=== PATIENT | female | born 1950 | race Caucasian/White ===

== ENCOUNTER 2018-11-26 09:22 | Observation (INO) ==
[2018-11-26] MEDS ORDERED: NS 1,000 ML IV ONE (09:45)
[2018-11-26] MEDS ORDERED: ZOFRAN IV ONE (09:45)
[2018-11-26] MEDS ORDERED: MORPHINE IV ONE (09:45)
[2018-11-26] MEDS ORDERED: MAXIPIME 2 GM in NS 100 ML IV ONE (09:46)
[2018-11-26 10:23] LABS: BASO# 0.03 X1000 (0.0-0.2); BASO% 0.2 % (0.0-0.8); EOS% 0.7 % (0.0-10.0); HEMATOCRIT 41.6 % (37.0-47.0); HEMOGLOBIN 14.6 g/dL (12.0-16.0); IMM GRAN# 0.03 X1000 (0.0-0.04); IMM GRAN% 0.2 % (0.0-0.5); LYMPH% 11.3 % (20.5-51.1); MCH 29.7 PG (27-31); MCHC 35.1 g/dL (33-37); MCV 84.6 FL (81-99); MONO# 1.48 X1000 (0.11-0.59); MONO% 9.9 % (1.7-9.3); MPV 10.7 FL (7.4-10.4); NEUT# 11.65 X1000 (1.4-6.5); NEUT% 77.7 % (42.2-75.2); PLT 323 X1000 (130-400); RBC 4.92 XMIL (4.2-5.4); RDW 13.8 % (11.5-14.5); WBC 14.99 X1000 (4.8-10.8)
--- NOTE | 2018-11-26 10:29 | Diag Imaging Result Doc PS360 ---
CHEST-PORTABLE - 11/26/2018 INDICATION: upright, r/o free air COMPARISON: 12/13/2015 FINDINGS: The lungs are normally expanded and clear. Heart size and mediastinal contours are normal. No pneumothorax or pleural effusion. IMPRESSION: Negative exam. No abdominal free air. Electronically signed by Chris Jama 11/26/2018 10:26 AM
--- NOTE | 2018-11-26 10:34 | Diag Imaging Result Doc PS360 ---
EXAM: CT ABDOMEN/PELVIS W/O CONTRAST HISTORY: LLQ pain, hx of diverticulitis, contrast allergy TECHNIQUE: CT abdomen and pelvis without contrast COMPARISON: None. FINDINGS: There is a small hiatal hernia. The gallbladder apparently has been removed. No focal hepatic abnormality identified on this noncontrasted exam. Normal spleen, pancreas, and adrenal glands. No renal stones. No hydronephrosis. There is a 3.6 cm left renal cyst. Prominent atherosclerosis. No aortic aneurysm. There are prominent inflammatory changes at the junction of the descending and sigmoid colon. There are multiple diverticula in this area. There is thickening to the wall at the descending sigmoid junction. No adjacent free air. No abscess. No bowel obstruction. The uterus has been removed. The urinary bladder is distended and is normal. There has been surgery to the mid lumbar spine. Mild scoliosis with degenerative spine changes. IMPRESSION: Diverticulitis at the junction of the descending and sigmoid colon. This report was discussed with Dr. Darnell Gutierrez in the emergency room on 11/26/2018 at 10:30 AM and was readback. This exam was performed using automated exposure control, adjustment of mA or kV according to patient size, and/or use of iterative reconstruction technique. Electronically signed by Hong Wright 11/26/2018 10:32 AM
[2018-11-26 10:49] LABS: ESTIMATED GFR > 60
[2018-11-26 10:53] LABS: AGAP 16; ALKALINE PHOSPHATASE 112 U/L (32-104); BUN 14 mg/dL (8-22); CALCIUM 9.5 mg/dL (8.8-10.2); CHLORIDE 89 mmol/L (98-107); COSMO 261; CREATININE 0.9 mg/dL (0.5-0.9); GLUCOSE 133 mg/dL (70-104); GOT 28 U/L (10-30); GPT 25 U/L (10-36); LIPASE 33 U/L (13-60); POTASSIUM 4.3 mmol/L (3.5-5.1); SODIUM 129 mmol/L (136-145); TCO2 24 mmol/L (25-35); TOTAL BILIRUBIN 0.86 mg/dL (0.20-1.00)
--- NOTE | 2018-11-26 12:08 | PROVIDER DOCUMENTATION ---
This chart was entered by Suzanne Monsalve Scribe, acting as scribe for Darnell Gutierrez MD. HPI-Abdominal Pain/GI Problem - General Chief Complaint: Abdominal Pain Stated Complaint: LT SIDE PAIN Time Seen by Provider: 11/26/18 09:38 Source: patient Allergies/Adverse Reactions: Patient Allergies Allergy/AdvReac Type Severity Reaction Status Date / Time Penicillins Allergy Mild RASH Verified 12/13/15 19:57 Home Medications: Home Medication List Medication Instructions Recorded Confirmed Last Taken Type Lisinopril/Hydrochlorothiazide 1 each PO DAILY 10/13/14 12/13/15 12/13/15 09:00 History [Zestoretic 20-25 Tablet] - History of Present Illness-ABD Nature of Presenting Problems: Patient is a 67 year old female who presents with LLQ abdominal pain that started 1 week ago. States nausea, constipation and loss of appetite. Reports eating a pickle last week and symptoms started. States history of diverticulitis and was recently prescribed Cipro. Denies blood in stool. Abdominal Pain Onset Location: reports: LLQ Pain Radiation: reports: no radiation Quality of Pain: reports: sharp Severity in ED: reports: mild Onset/Duration: reports: 1 week ago Timing: reports: still present, intermittent, getting worse Activities at Onset: reports: light activity Modifying Factors: worse with: movement Associated Symptoms: reports: constipation, loss of appetite, nausea Rectal Bleeding: reports: none Rectal Pain: reports: none Emesis Description: reports: none Bruising or Bleeding Gums?: No Similar Symptoms Previously?: Yes Recently seen or treated by another doctor?: Yes Review of Systems - Adult - REVIEW OF SYSTEMS - ADULT Constitutional: reports: no symptoms reported. denies: chills, fever, fatique Eyes: reports: no symptoms reported Ears, Nose, Mouth & Throat: reports: no symptoms reported Cardiovascular: reports: no symptoms reported Respiratory: reports: no symptoms reported Gastrointestinal: reports: see HPI, abdominal pain (LLQ), constipation, nausea, poor appetite. denies: rectal bleeding, vomiting Genitourinary: reports: no symptoms reported Musculoskeletal: reports: no symptoms reported. denies: back pain, muscle aches, muscle weakness Integumentary: reports: no symptoms reported Neurological: reports: no symptoms reported Psychiatric: reports: no symptoms reported Endocrine: reports: no symptoms reported Hematologic/Lymphatic: reports: no symptoms reported Allergic/Immunologic: reports: no symptoms reported All Other Systems: Reviewed and Negative Past History - Adult - PAST MEDICAL HISTORY-ADULT Review of Records: reports: Old Records Reviewed, Nursing Assessment Review, Medications Reviewed, Social history reviewed & non-contributory. Major Childhood Illnesses: reports: denies history Cardiovascular: reports: HTN Respiratory: reports: denies history Gastrointestinal: reports: denies history Obstetrical/Gynecological: reports: denies history Genitourinary: reports: denies history Musculoskeletal: reports: denies history Neurological: reports: denies history Endocrine/Immune: reports: denies history Other Conditions: reports: other (tonisullar cancer surgery 2 months ago) - PRIOR SURGERIES/PROCEDURES Surgical/Procedure History: reports: cholecystectomy, hysterectomy, hernia repair - PRIOR HOSPITALIZATIONS Prior Hospitalizations: reports: for other non-related - IMMUNIZATION STATUS Childhood Immunizations: See Nurse Assessment Flu Vaccine: See Nurse Assessment - FAMILY HISTORY Family History: reviewed, not pertinent - SOCIAL HISTORY Smoking: denies Substance Use: denies Physical Exam-General - PHYSICAL EXAM-ADULT Initial Vital Signs Reviewed: Yes - CONSTITUTIONAL General Appearance: alert, no apparent distress. negative: lethargic, slow to respond - HEAD, EARS, NOSE, MOUTH & THROAT HENMT: normocephalic/atraumatic, moist mucous membranes. negative: angioedema, hearing deficit - RESPIRATORY Respiratory: chest non-tender, lungs clear, normal breath sounds. negative: crackles, rales, stridor - CARDIOVASCULAR Cardiovascular: normal peripheral pulses, regular rate, rhythm. negative: tachycardia, systolic murmur - GASTROINTESTINAL (ABDOMEN) Abdominal Exam: soft, abnormal bowel sounds (hypoactive), guarding, tenderness (LLQ). negative: distended, hernia - MUSCULOSKELETAL Extremity: non-tender, normal inspection. negative: deformity, erythema - SKIN Integumentary: normal color, normal turgor, warm/dry. negative: cyanosis, ecchymosis, erythema, jaundice - NEUROLOGIC Neurologic: grossly normal. negative: aphasia, facial droop - PSYCHIATRIC Psych/Mental Status: normal mood/affect, oriented x 3. negative: anxious Progress - PLAN OF CARE/RESULTS Progress/Plan/Lab Results: Vital Signs - 8 hr 11/26/18 09:34 Temperature 97.4 F L Pulse Rate 82 Respiratory Rate 17 Blood Pressure 109/70 O2 Sat by Pulse Oximetry 99 Orders Category Date Time Status Saline Loc NOW Care 11/26/18 09:44 Active CHEST-PORTABLE [RAD] Stat Exams 11/26/18 09:[address] ABDOMEN/PELVIS W/O CONTRAST [CT] Stat Exams 11/26/18 09:48 Ordered BLOOD CULTURE [BLDCUL] Stat Lab 11/26/18 09:44 Ordered CBC WITH ELECTRONIC DIFF [HEME] Stat Lab 11/26/18 09:45 Uncollected COMPREHENSIVE METABOLIC PANEL [CHEM] Stat Lab 11/26/18 09:45 Uncollected LACTATE, PLASMA [CHEM] Stat Lab 11/26/18 09:45 Uncollected LIPASE [CHEM] Stat Lab 11/26/18 09:45 Uncollected OCCULT BLOOD SCREENING [STOOL] Stat Lab 11/26/18 09:45 Uncollected URINALYSIS W/POSS RFLX CULT [URINALYSIS] Stat Lab 11/26/18 09:45 Uncollected 0.9% Sodium Chloride Inj [Ns] 1,000 ml Med 11/26/18 09:45 Active IV 999 mls/hr CefEPIME [Maxipime] 2 gm Med 11/26/18 09:46 Active 0.9% Sodium Chloride Inj [Ns] 100 ml IV NOW Morphine Med 11/26/18 09:45 Discontinued 4 mg IV NOW ONE Ondansetron [Zofran] Med 11/26/18 09:45 Discontinued 4 mg IV NOW ONE Result Diagrams: 11/26/18 10:05 11/26/18 10:05 - REASSESSMENT Reassessment #1 Time Reassessed: 12:00 (failed outpatient therapy, does not wish to be admitted to Dr. Ordoñez) Status: improving Reassessment Comment: Patient states she feels much better, but still has some LLQ tenderness - XRAY 1 XRAY Study: Chest Impression: See EMR Report ( Signed CHEST-PORTABLE - 11/26/2018 INDICATION: upright, r/o free air COMPARISON: 12/13/2015 FINDINGS: The lungs are normally expanded and clear. Heart size and mediastinal contours are normal. No pneumothorax or pleural effusion. IMPRESSION: Negative exam. No abdominal free air. Electronically signed by Chris Jama 11/26/2018 10:26 AM 11/26/18 1026 Interpreting Physician: Chris Jama MD Dictated Date/Time: 11/26/18 1026 cc: Darnell Gutierrez MD; Josue Ordoñez MD) - CT/MRI 1 CT Study: Abdomen, Pelvis Impression: See EMR Report ( EXAM: CT ABDOMEN/PELVIS W/O CONTRAST HISTORY: LLQ pain, hx of diverticulitis, contrast allergy TECHNIQUE: CT abdomen and pelvis without contrast COMPARISON: None. FINDINGS: There is a small hiatal hernia. The gallbladder apparently has been removed. No focal hepatic abnormality identified on this noncontrasted exam. Normal spleen, pancreas, and adrenal glands. No renal stones. No hydronephrosis. There is a 3.6 cm left renal cyst. Prominent atherosclerosis. No aortic aneurysm. There are prominent inflammatory changes at the junction of the descending and sigmoid colon. There are multiple diverticula in this area. There is thickening to the wall at the descending sigmoid junction. No adjacent free air. No abscess. No bowel obstruction. The uterus has been removed. The urinary bladder is distended and is normal. There has been surgery to the mid lumbar spine. Mild scoliosis with degenerative spine changes. IMPRESSION: Diverticulitis at the junction of the descending and sigmoid colon. This report was discussed with Dr. Darnell Gutierrez in the emergency room on 11/26/2018 at 10:30 AM and was readback. This exam was performed using automated exposure control, adjustment of mA or kV according to patient size, and/or use of iterative reconstruction technique. Electronically signed by Hong Wright 11/26/2018 10:32 AM 11/26/18 1032 Interpreting Albert driver: Hong Wright MD Dictated Date/Time: 11/26/18 1027 cc: Darnell Gutierrez MD; Josue Ordoñez MD) - CONSULTS/PCP/HOSPITALIST Notification #1 *Consult/PCP/Hospitalist*: Youself Time Discussed: 12:02 Consult Disposition: other (he will follow-up in hospital) #2 Consult: Hospitalist paged at 1200 Time Discussed: 12:08 Reason/Comments: Shilpi will discuss with Dr. costa Consult Disposition: Will see in ED Departure - Departure Date of Disposition Decision: 11/26/18 Time of Disposition Decision: 12:02 DIAGNOSIS: Diverticulitis of sigmoid colon, Failure of outpatient treatment Disposition: ADMITTED INPATIENT 09 Certified Medical Emergency: Emergent Condition: Stable Referrals and Follow-Ups: Josue Ordoñez MD [Primary Care Provider] - - Critical Care Note This patient required my direct & personal management of CC.: No Attestation - Physician/ OSMAN Attestation Patient care was provided by Advanced Practice Provider:: No The physician spent face to face time with patient:: Yes Advanced Practice Provider documentation review:: Supervising physician onsite and consulted in the evaluation and care of this patient. The physician did have a face to face encounter with the patient. This chart was documented by the indicated scribe, (Suzanne Monsalve Scribe) and accurately reflects the services I performed and decisions made by me, Darnell Gutierrez MD, as attested by the provider's signature.
[2018-11-26] MEDS ORDERED: ZOFRAN IV PRN (13:15)
[2018-11-26] MEDS ORDERED: TYLENOL PO PRN (13:15)
[2018-11-26] MEDS ORDERED: FLAGYL 250 MG/NS 250 MG/50 ML IVPB IV SCH (15:00)
[2018-11-26] MEDS ORDERED: DILAUDID IV PRN (16:02)
[2018-11-26 18:17] LABS: URINE SOURCE CLEAN CATCH
[2018-11-26 18:20] LABS: BILIRUBIN URINE NEGATIVE (NEGATIVE); BLOOD URINE TRACE (NEGATIVE); COLOR YELLOW; GLUCOSE URINE NEGATIVE (NEGATIVE); KETONE URINE 10 mg/dL (NEGATIVE); PH URINE 6.5; PROTEIN URINE 30 mg/dL (NEGATIVE); SP GRAVITY URINE 1.023; TURBIDITY URINE CLEAR (CLEAR); UROBILINOGEN URINE NORMAL (NORMAL)
[2018-11-26 18:21] LABS: LEUKOCYTES URINE MODERATE (NEGATIVE); NITRITE URINE NEGATIVE (NEGATIVE); UR EPITHELIAL CELLS <10 /HPF (<10); URINE BACTERIA NEGATIVE /HPF
--- NOTE | 2018-11-26 20:46 | HISTORY AND PHYSICAL ---
CHIEF COMPLAINT: Left lower quadrant pain. HISTORY OF PRESENT ILLNESS: The patient is a 67-year-old white female followed by Dr. Josue Ordoñez. She presented to the ER with complaints of left lower quadrant pain. The patient relates that she had pain developed 1 to 2 weeks ago in the left lower quadrant. She has a long history of diverticulosis and prior admissions related to diverticulitis. She has had some anorexia, nausea, and some constipation. She had seen Dr. Ordoñez 1 week ago and was placed on Cipro, and she has been on that for a week at b.i.d. dosing but pains have persisted. MEDICATIONS PRIOR TO ADMISSION: Otherwise are Protonix 40 mg p.o. daily, Zestoretic 20/25 one p.o. daily. ALLERGIES: To penicillin. PAST MEDICAL HISTORY: 1. Diverticulosis with last colonoscopy noted per Dr. Madera about 2 to 3 years ago by patient report. 2. Hypertension. 3. GERD. 4. 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 PAST SURGICAL HISTORY: 1. Neck surgery. 2. Lumbar surgery. 3. Left forearm ORIF after accident at work with fractures. 4. XENA. 5. BSO. 6. Cholecystectomy. 7. Patient thinks she had an appendectomy when she had her BSO. 8. Tonsillectomy related to tonsillar cancer about 3 years ago. FAMILY HISTORY: Notable for mother with hypertension and with mother with coronary artery disease. No diabetes or cancer in the family. No strokes. SOCIAL HISTORY: The patient lives in [place]. She is , has children. Has never been a smoker. Does not drink alcohol. REVIEW OF SYSTEMS: Negative except as above. PHYSICAL EXAMINATION: VITAL SIGNS: Temperature 97.4 degrees, pulse 82, respirations 17, blood pressure 109/70, O2 saturation 99% on room air. Weight 173, height 5 feet tall. GENERAL: Mildly obese white female in no acute distress. SKIN: Warm and dry. No rashes. HEENT: NC/AT, PERRL, EOMI. Sclerae clear. OP: No redness. Left soft palate rides higher than the right, and it appears she has had surgery on the left soft palate and tonsillar area. NECK: No LA, TMG, JVD, bruits. CARDIOVASCULAR: RRR without murmur. LUNGS: CTA. BACK: No CVA tenderness. ABDOMEN: Soft. Active bowel sounds. Mild to moderate tenderness left lower quadrant. No mass or organomegaly. No rebound or guarding. BREASTS/PELVIC/RECTAL: Deferred. EXTREMITIES: No calf tenderness, cords or edema. NEUROLOGIC: Cranial nerves 2 through 12 are intact, nonfocal. LABORATORY DATA: Blood cultures x2 have been obtained. White count 14.99, hemoglobin 14.6, hematocrit 41.6, MCV 84.6, platelets 323,000, neutrophils 77, lymphocytes 11, monocytes 9.9. Sodium 129, potassium 4.3, chloride 89, CO2 24, BUN 14, creatinine 0.9, glucose 133, calcium 9.5, total bilirubin 0.86, AST 28, ALT 25, alkaline phosphatase 112, total protein 8.0, albumin 4.0, lipase 33, plasma lactate 1.0. IMAGING: Flat and upright with 1 view of the chest is negative. CT abdomen and pelvis done without contrast reveals diverticulitis at the junction of the descending and sigmoid colon. No abscess or microabscesses or free air. ASSESSMENT: 1. Left diverticulitis without abscesses or perforation. 2. Hypertension. 3. Gastrointestinal reflux disease. 4. History of tonsillar cancer status post treatments with radiation and surgery. PLAN: We will admit the patient as she has failed outpatient Cipro, has the leukocytosis and unable to eat well. We will give her IV antibiotics in the form of Maxipime and Flagyl. We will give pain control with Tylenol as needed and Zofran as needed for nausea and vomiting. Continue Zestoretic and Protonix. We will give her Dilaudid as needed for severe pain. cc: MD Josue Harper MD
[2018-11-26] MEDS: FLAGYL 500 MG/NS 500 MG/100 ML IVPB IV SCH (22:17)
[2018-11-26] MEDS: MAXIPIME 1 GM in NS 50 ML IV SCH (22:17)
[2018-11-27] MEDS: PROTONIX PO SCH ×2 (05:28→06:01)
[2018-11-27] MEDS: FLAGYL 500 MG/NS 500 MG/100 ML IVPB IV SCH ×3 (05:28→20:21)
[2018-11-27 06:11] LABS: HEMATOCRIT 37.8 % (37.0-47.0); MCH 29.5 PG (27-31); MCHC 34.4 g/dL (33-37); MCV 85.7 FL (81-99); PLT 261 X1000 (130-400); RBC 4.41 XMIL (4.2-5.4); RDW 13.6 % (11.5-14.5); WBC 8.52 X1000 (4.8-10.8)
[2018-11-27 06:12] LABS: BASO# 0.03 X1000 (0.0-0.2); BASO% 0.4 % (0.0-0.8); EOS# 0.37 X1000 (0.0-0.7); EOS% 4.3 % (0.0-10.0); LYMPH# 1.35 X1000 (1.2-3.4); LYMPH% 15.8 % (20.5-51.1); MONO# 0.98 X1000 (0.11-0.59); MONO% 11.5 % (1.7-9.3); MPV 10.6 FL (7.4-10.4); NEUT# 5.79 X1000 (1.4-6.5)
[2018-11-27 06:31] LABS: AGAP 9; BUN 13 mg/dL (8-22); CALCIUM 8.8 mg/dL (8.8-10.2); CHLORIDE 97 mmol/L (98-107); COSMO 265; CREATININE 0.8 mg/dL (0.5-0.9); ESTIMATED GFR > 60; GLUCOSE 110 mg/dL (70-104); POTASSIUM 3.8 mmol/L (3.5-5.1); SODIUM 132 mmol/L (136-145); TCO2 26 mmol/L (25-35)
[2018-11-27] MEDS: PRINZIDE 10/12.5MG PO SCH (10:18)
[2018-11-27] MEDS: MAXIPIME 1 GM in NS 50 ML IV SCH ×2 (10:19→21:19)
[2018-11-28] MEDS: FLAGYL 500 MG/NS 500 MG/100 ML IVPB IV SCH (05:57)
[2018-11-28] MEDS: PROTONIX PO SCH (06:36)
[2018-11-28] MEDS: PRINZIDE 10/12.5MG PO SCH (09:21)
[2018-11-28] MEDS: MAXIPIME 1 GM in NS 50 ML IV SCH (09:21)
[2018-11-28 12:09] VITALS: BP 118/63
--- NOTE | 2018-11-28 13:07 | PROGRESS NOTE ---
DATE: 11/28/2018 SUBJECTIVE: Ms. Islas' cultures are negative. She is still slightly tender in the left lower quadrant. However, she is insisting to go home, and will discharge her today upon request. -7 cc: MD Josue Glass MD
--- NOTE | 2018-11-29 04:42 | PROGRESS NOTE ---
DATE: 11/27/2018 SUBJECTIVE: Ms. Islas had diverticulitis on the sigmoid and descending colon. She is on IV cefepime. Urine also showed 10 to 20 WBCs and RBCs. Hemoglobin is 13, hematocrit 37.8, white count was 8.52. We are going to continue with the current management. -6 cc: MD Josue Glass MD
== END 2018-11-28 12:55 | disposition home or self-care (01) ==
LOC: 4N 09:22 → ED 09:22 → 4N 17:59
PROVIDERS: ADMIT Family Medicine; ATTEND Family Medicine
CPT/HCPCS: 71010; 71045; 74176; 80048; 80053; 81001; 83605; 83690; 85025; 87040; 87088; A9270; J0692; J2270; J2405; J7030; S0030